=== PATIENT | male | born 1995 | race Caucasian/White ===

== ENCOUNTER 2019-07-31 11:46 | Outpatient (CLI) | payer OTHER, BC, SELFPAY ==
[2019-07-31 13:35] LABS: Calculated LDL 74 mg/dL; Cholesterol 127 mg/dL (50-200); Glucose 82 mg/dL (70-100); HDL Cholesterol 46 mg/dL (40-60); Triglyceride 36 mg/dL (30-150)
== END 2019-07-31 12:06 ==
PROVIDERS: PCP General Practice; Visit Provider General Practice
DX: Z00.00 Encounter for general adult medical examination without abnormal findings (principal); Z13.1 Encounter for screening for diabetes mellitus; Z13.220 Encounter for screening for lipoid disorders
CPT/HCPCS: 36415; 80061; 82947